=== PATIENT | female | born 1935 | race Caucasian/White ===

== ENCOUNTER 2016-08-10 17:00 | Observation (INO) ==
--- NOTE | 2016-08-10 17:12 | Emergency Department Note ---
Disposition Clinical Impression: Colitis Disposition: Admitted As Inpatient Condition: Fair Referrals: Daryl Presley DO [Primary Care Provider] - Forms: ED Satisfaction Letter Time of Disposition: 19:34 (raji hoskins) GI Bleed HPI - General Chief complaint: ED GI Bleed Stated complaint: gi bleed, hematuria Time Seen by Provider: 08/10/16 17:02 Source: patient Mode of arrival: ambulatory Limitations: no limitations Nursing Notes Reviewed: Yes Vital Signs Reviewed: Yes - History of Present Illness HPI Narrative: 80-year-old female presents versus had bloody stools increasing in intensity over the past 3 days to the point where today she passed blood and clots in the stool states that she has had abdominal cramping but no abdominal pain denies chest pain chest pressure palpitations cough hemoptysis sputum production she had a single episode portably last night according to family patient denies numbness tingling weakness recently gaining weight loss denies any recent antibiotics and also denies any additional complaints with complete entire review systems Pt Subjective Complaint: gross bloody stools Onset (ago): day(s) (3) Consistency: constant Severity: moderate Improves with: nothing Worsens with: nothing Associated symptoms: Reports: abdominal pain. Denies: vomiting, epistaxis, fever, headaches, loss of appetite, malaise, easy bruising, rash, shortness of breath, syncope/near-syncope Treatments Prior to Arrival: none - Related Data Home Medications Medication Instructions Recorded Confirmed Acetaminophen [Tylenol] 500 mg PO DAILY 08/14/15 08/03/16 Atorvastatin [Lipitor] 10 mg PO HS 08/14/15 08/03/16 Cholecalciferol (Vitamin D3) 1,000 unit PO DAILY 08/14/15 08/03/16 [Vitamin D] FLUoxetine HCl [PROzac] 10 mg PO DAILY 08/14/15 08/03/16 FLUoxetine HCl [PROzac] 10 mg PO DAILY 08/14/15 08/03/16 Garlic 500 mg PO DAILY 08/14/15 08/03/16 Lisinopril 30 mg PO DAILY 08/14/15 08/03/16 Baxley-3/Dha/Epa/Fish Oil [Baxley 3 1 each PO DAILY 08/14/15 08/03/16 500 Softgel] Allergies Allergy/AdvReac Type Severity Reaction Status Date / Time Sulfa (Sulfonamide Allergy Hives Verified 08/03/16 16:56 Antibiotics) All systems ED: reviewed and negative except as stated. Constitutional: Denies: fever, chills, weakness Eyes: Denies: eye discharge ENT ED: Denies: ear pain Cardiovascular: Denies: chest pain Respiratory: Denies: cough, dyspnea Gastrointestinal: Reports: abdominal pain, hematochezia Genitourinary: Reports: urgency, dysuria, frequency, hematuria Musculoskeletal: Denies: back pain, neck pain Integumentary: Denies: abrasion Neurological: Denies: weakness Psychiatric: Denies: depression Endocrine: Denies: heat or cold intolerance Hematological/Lymphatic: Denies: easy bleeding Allergic/Immunologic: Denies: facial swelling Past Medical History - Past Medical History Attestation: Yes The following information was validated with the patient. 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 - Social History Smoking Status: Current every day smoker Smokeless Tobacco Status: No Alcohol use: Reports: occasionally Drug use: Reports: none Physical Exam - General Limitations: no limitations General appearance: alert, in no apparent distress, anxious - Head Head exam: atraumatic, normocephalic, normal inspection - Eye Eye exam: Present: normal appearance, PERRL, EOMI - ENT ENT exam: normal exam, normal oropharynx, mucous membranes moist, normal external ear exam - Neck Neck exam: Present: normal inspection, full ROM, trachea midline - Chest Chest inspection: Present: normal inspection, symmetric chest wall rise - Respiratory Respiratory exam: Present: normal lung sounds bilaterally - Cardiovascular Cardiovascular exam: Present: regular rate, normal rhythm, normal heart sounds - Abdominal Exam Abdominal exam: Present: soft, Non-Tender, normal bowel sounds - Extremities Exam Extremities exam: Present: normal inspection, full ROM, normal capillary refill. Absent: tenderness, joint swelling - Expanded Lower Extremity Exam Neurovascular/Tendon exam: Present: normal capillary refill, normal fine/light touch Gait: observed and normal - Back Exam Back exam: Present: normal inspection, full ROM. Absent: muscle spasm - Neurological Exam Neurological exam: Present: alert, oriented X3, CN II-XII intact - Psychiatric Psychiatric exam: Present: anxious - Skin Skin exam: Present: warm, dry, intact, normal color Course Course Narrative: Patient was immediately seen and examined IV was established at this time patient is asymptomatic CT scan and labs were done which showed that there was acute colitis mild to severe patient did [facility] family talked to the patient she is now agreeable staying patient retransferred to [facility] for IV antibiotics which should resolve the bleeding within the stools and stabilized the hemoglobin we will do serial H&H's through the night admitted for observation service of Dr. Zaidi Vital Signs Temperature 97.4 F L 08/10/16 17:01 Pulse Rate 79 08/10/16 17:01 Respiratory Rate 18 08/10/16 17:01 Blood Pressure 188/76 08/10/16 17:01 O2 Sat by Pulse Oximetry 97 08/10/16 17:01 Temperature 97.4 F L 08/10/16 17:01 Pulse Rate 72 08/10/16 19:36 Respiratory Rate 18 08/10/16 19:36 Blood Pressure 185/82 08/10/16 19:36 O2 Sat by Pulse Oximetry 95 08/10/16 19:36 Oxygen Delivery Oxygen Delivery Room Air GI Bleed - MDM Narrative Medical decision making narrative: uti colitis - Differential Diagnosis Likely: Upper gastrointestinal hemorrhage, Lower gastrointestinal hemorrhage, hematochezia, melena, coagulopathy - Medical Records Medical records reviewed: Yes I reviewed the patient's medical records. - Lab Data Lab results reviewed: Yes I reviewed the patient's lab results. Result diagrams: 08/10/16 17:36 08/10/16 17:36 Lab Results 08/10/16 08/10/16 08/10/16 Range/Units 17:36 17:36 17:36 WBC 11.5 H (4.3-11.1) K/mcL RBC 3.14 L (3.82-4.97) M/mcL Hgb 8.7 L (11.5-15.4) g/dL Hct 26.3 L (35.3-44.9) % MCV 83.8 (83.0-100.0) fL MCH 27.7 L (28.0-33.3) pg MCHC 33.1 (31.6-35.5) g/dL RDW 16.1 H (11.5-14.5) % Plt Count 245 (140-400) K/mcL MPV 9.3 L (9.4-12.4) fL Immature Gran % 0.5 (0-4) % Seg Neutrophils % 77.6 % Lymphocytes % 11.9 % Monocytes % 9.1 % Eosinophils % 0.6 % Basophils % 0.3 % Neutrophils # 8.9 (1.6-8.9) K/mcL Lymphocytes # 1.4 (0.6-4.6) K/mcL Monocytes # 1.1 (0.0-1.3) K/mcL Eosinophils # 0.1 (0.0-0.6) K/mcL Basophils # 0.0 (0.0-0.2) K/mcL PT 11.7 (9.4-12.1) Seconds INR 1.1 APTT 27.3 (26.0-36.0) Seconds Sodium 141 (136-145) mEq/L Potassium 3.3 L (3.5-4.5) mEq/L Chloride 107 (98-109) mEq/L Carbon Dioxide 24 (19-29) mEq/L BUN 19 (7-20) mg/dL Creatinine 0.94 (0.57-1.11) mg/dL Est GFR ( Amer) > 60 (> 60) Est GFR (Non-Af Amer) 57 L (> 60) BUN/Creatinine Ratio 20 (6-26) Glucose 129 H (70-99) mg/dL Calculated Osmolality 296 (280-300) Calcium 9.1 (8.6-10.8) mg/dL Total Bilirubin 0.3 (0.2-1.2) mg/dL AST 19 (5-34) Units/L ALT 14 (0-55) Units/L Alkaline Phosphatase 73 (38-126) Units/L Troponin I (0-0.03) ng/mL Serum Total Protein 6.1 (6.0-8.3) g/dL Albumin 3.2 L (3.5-5.0) g/dL Globulin 2.9 (2.4-3.5) g/dL Albumin/Globulin Ratio 1.1 (1.1-2.2) 08/10/16 Range/Units 17:36 WBC (4.3-11.1) K/mcL RBC (3.82-4.97) M/mcL Hgb (11.5-15.4) g/dL Hct (35.3-44.9) % MCV (83.0-100.0) fL MCH (28.0-33.3) pg MCHC (31.6-35.5) g/dL RDW (11.5-14.5) % Plt Count (140-400) K/mcL MPV (9.4-12.4) fL Immature Gran % (0-4) % Seg Neutrophils % % Lymphocytes % % Monocytes % % Eosinophils % % Basophils % % Neutrophils # (1.6-8.9) K/mcL Lymphocytes # (0.6-4.6) K/mcL Monocytes # (0.0-1.3) K/mcL Eosinophils # (0.0-0.6) K/mcL Basophils # (0.0-0.2) K/mcL PT (9.4-12.1) Seconds INR APTT (26.0-36.0) Seconds Sodium (136-145) mEq/L Potassium (3.5-4.5) mEq/L Chloride (98-109) mEq/L Carbon Dioxide (19-29) mEq/L BUN (7-20) mg/dL Creatinine (0.57-1.11) mg/dL Est GFR ( Amer) (> 60) Est GFR (Non-Af Amer) (> 60) BUN/Creatinine Ratio (6-26) Glucose (70-99) mg/dL Calculated Osmolality (280-300) Calcium (8.6-10.8) mg/dL Total Bilirubin (0.2-1.2) mg/dL AST (5-34) Units/L ALT (0-55) Units/L Alkaline Phosphatase (38-126) Units/L Troponin I 0.02 (0-0.03) ng/mL Serum Total Protein (6.0-8.3) g/dL Albumin (3.5-5.0) g/dL Globulin (2.4-3.5) g/dL Albumin/Globulin Ratio (1.1-2.2) - Radiology Data Radiology results reviewed: Yes I reviewed the patient's radiology results. ITS Impressions Abdomen/Pelvis CT 08/10/16 17:03 IMPRESSION: 1. Findings compatible with moderate to severe colitis of the left colon. D/ / 08/10/2016 18:24:13 Thanh Garcia MD / abhinav Interpreting Provider: Thanh Garcia MD - EKG Data EKG attestation: Yes I reviewed and interpreted this EKG. EKG results narrative: Sinus rhythm rate 76 WI 208 QRS 164 QT 412 access -60 Critical Care Time Critical Care Time: No
[2016-08-10 17:44] LABS: Basophils % 0.3 %; Eosinophils # 0.1 K/mcL (0.0-0.6); Eosinophils % 0.6 %; Hematocrit 26.3 % (35.3-44.9); Hemoglobin 8.7 g/dL (11.5-15.4); Immature Granulocytes % 0.5 % (0-4); Lymphocytes # 1.4 K/mcL (0.6-4.6); Lymphocytes % 11.9 %; Mean Corpuscular HGB Conc 33.1 g/dL (31.6-35.5); Mean Corpuscular Hemoglobin 27.7 pg (28.0-33.3); Mean Corpuscular Volume 83.8 fL (83.0-100.0); Mean Platelet Volume 9.3 fL (9.4-12.4); Monocytes % 9.1 %; Neutrophils # 8.9 K/mcL (1.6-8.9); Platelet Count 245 K/mcL (140-400); Red Blood Count 3.14 M/mcL (3.82-4.97); Red Cell Distribution Width 16.1 % (11.5-14.5); Segmented Neutrophils % 77.6 %
[2016-08-10 17:50] LABS: Monocytes # 1.1 K/mcL (0.0-1.3)
[2016-08-10 17:52] LABS: INR 1.1; Prothrombin Time 11.7 Seconds (9.4-12.1)
[2016-08-10 17:55] LABS: Activated Partial Thrombo Time 27.3 Seconds (26.0-36.0)
[2016-08-10 18:04] LABS: Alanine Aminotransferase 14 Units/L (0-55); Albumin 3.2 g/dL (3.5-5.0); Albumin/Globulin Ratio 1.1 (1.1-2.2); Alkaline Phosphatase 73 Units/L (38-126); Aspartate Amino Transferase 19 Units/L (5-34); BUN/Creatinine Ratio 20 (6-26); Bilirubin,Total 0.3 mg/dL (0.2-1.2); Blood Urea Nitrogen 19 mg/dL (7-20); Calcium 9.1 mg/dL (8.6-10.8); Carbon Dioxide 24 mEq/L (19-29); Chloride 107 mEq/L (98-109); Globulin 2.9 g/dL (2.4-3.5); Glucose 129 mg/dL (70-99); Osmolality,Calculated 296 (280-300); Potassium 3.3 mEq/L (3.5-4.5); Sodium 141 mEq/L (136-145); Total Protein 6.1 g/dL (6.0-8.3); eGFR For African Americans > 60 (> 60); eGFR For Non-African Americans 57 (> 60)
[2016-08-10] MEDS ORDERED: MetroNIDAZOLE 500 MG/100 ML 500 MG/100 ML BAG IVPB STA (19:11)
[2016-08-10] MEDS ORDERED: 0.9 % Sodium Chloride 1,000 ML IVC SCH ×2 (19:15→20:44)
[2016-08-10] MEDS ORDERED: Naloxone 0.4 MG/ML INJ IVP PRN (20:44)
[2016-08-10] MEDS ORDERED: Ondansetron ODT 4 MG TAB.RAPDIS SL PRN (20:44)
[2016-08-10 21:29] LABS: Hematocrit 24.6 % (35.3-44.9); Hemoglobin 8.2 g/dL (11.5-15.4)
[2016-08-10 22:15] LABS: Bilirubin,Urine Negative (Negative); Blood,Urine Negative (Negative); Clarity,Urine Clear (Clear); Color,Urine Yellow (Yellow); Glucose,Urine (UA) Normal (Normal); Ketones,Urine Negative (Negative); Leukocyte Esterase,Urine Negative (Negative); Nitrite,Urine Negative (Negative); Protein,Urine 100 mg/dL (Neg-Trace); Specific Gravity,Urine 1.025 (1.010-1.025); Urobilinogen,Urine Normal (Normal)
[2016-08-10 22:26] LABS: Squamous Epithelial Cell,Urine Few per lpf (None-Few)
[2016-08-10] MEDS: Nicotine 21 MG PATCH.TD24 TD SCH (23:54)
[2016-08-11 05:32] LABS: Basophils % 0.2 %; Eosinophils # 0.1 K/mcL (0.0-0.6); Eosinophils % 0.9 %; Hematocrit 24.4 % (35.3-44.9); Immature Granulocytes % 0.3 % (0-4); Lymphocytes # 1.2 K/mcL (0.6-4.6); Lymphocytes % 9.8 %; Mean Corpuscular HGB Conc 32.8 g/dL (31.6-35.5); Mean Corpuscular Hemoglobin 27.7 pg (28.0-33.3); Mean Corpuscular Volume 84.4 fL (83.0-100.0); Monocytes # 1.1 K/mcL (0.0-1.3); Monocytes % 8.8 %; Neutrophils # 9.6 K/mcL (1.6-8.9); Platelet Count 224 K/mcL (140-400); Red Blood Count 2.89 M/mcL (3.82-4.97); Red Cell Distribution Width 16.1 % (11.5-14.5)
[2016-08-11 05:42] LABS: INR 1.1; Prothrombin Time 11.7 Seconds (9.4-12.1)
[2016-08-11 05:45] LABS: Activated Partial Thrombo Time 26.7 Seconds (26.0-36.0)
[2016-08-11 05:54] LABS: BUN/Creatinine Ratio 18 (6-26); Blood Urea Nitrogen 15 mg/dL (7-20); Calcium 8.6 mg/dL (8.6-10.8); Carbon Dioxide 22 mEq/L (19-29); Chloride 109 mEq/L (98-109); Glucose 87 mg/dL (70-99); Osmolality,Calculated 294 (280-300); Potassium 3.5 mEq/L (3.5-4.5); Sodium 142 mEq/L (136-145); eGFR For African Americans > 60 (> 60); eGFR For Non-African Americans > 60 (> 60)
[2016-08-11] MEDS: 0.9 % Sodium Chloride 1,000 ML IVC SCH ×3 (05:55→10:45)
[2016-08-11] MEDS ORDERED: Cholecalciferol (D-3) 1,000 UNIT TABLET PO SCH (09:00)
[2016-08-11] MEDS ORDERED: EPA PO SCH (09:00)
[2016-08-11] MEDS ORDERED: OMEGA PO SCH (09:00)
[2016-08-11] MEDS ORDERED: FISH OIL PO SCH (09:00)
[2016-08-11] MEDS ORDERED: FLUoxetine HCl 10 MG CAPSULE PO SCH ×2 (09:00)
[2016-08-11] MEDS ORDERED: (Garlic [Garlic] 500 MG) PO SCH (09:00)
[2016-08-11] MEDS ORDERED: DHA PO SCH (09:00)
[2016-08-11] MEDS: Nicotine 21 MG PATCH.TD24 TD SCH (10:33)
--- NOTE | 2016-08-11 14:28 | Internal Med History&Physical ---
Date of Encounter: 08/11/16 Time of Encounter: 13:25 Assessment and Plan (1) Anemia Current visit: Yes Status: Acute Suspect iron deficiency. Hemoglobin was 11.1 on 08/14/2015 with MCV of 86.1. Will start her on ferrous sulfate and vitamin C. Qualifiers: Anemia type: unspecified type Qualified Code(s): D64.9 - Anemia, unspecified (2) Hypokalemia Current visit: Yes Status: Resolved Potassium now normal at 3.5 on recheck. Will not workup or treat further. (3) Azotemia Current visit: Yes Status: Acute Creatinine has improved to 0.85 today. Will not workup or treatment further. Suspect CKD stage 2 from review of previous labs. (4) Colitis Current visit: Yes Status: Acute Etiology not obvious. We will not start antibiotics at this time. (5) Neutrophilic leukocytosis Current visit: Yes Status: Acute Suspect due to colitis. Repeat WBC shows minimal increase today to 12.0 K with 80% segs. Internal Medicine - H&P: HPI Chief complaint: Syncope and hematochezia Admitted From: Home Plans for Post Hospital Care: Home History of present illness: Ms. Salinas is a 80 year old female who came to emergency room at the insistence of her granddaughter after she had a BM with visible bright red blood approximately 4 PM the day of admission. There was no abdominal pain or other symptoms associated. She had had a syncopal episode the previous night after she arose from a chair and started walking to the bathroom. She does not remember well the circumstances surrounding the syncope. She denies injury but simply remembers regaining consciousness on the hallway floor. She had an episode of vomiting after the syncope but felt well otherwise. She had no further vomiting or syncopal or near syncopal episodes afterward. She was evaluated in emergency room and found to have anemia, hypokalemia, azotemia, and mild leukocytosis with borderline left shift. Abdominal/pelvic CT showed moderate to severe colitis of the left colon. She was admitted to [facility] for ongoing care needs. She states she feels back to her baseline now and wishes to be discharged home. She denies previous episodes of hematochezia or melena. She claims she had colonoscopy approximately 2012 which was unremarkable. She has had cholecystectomy. She denies disorders of her liver or exocrine pancreas. She has not taken antibiotics or any other new medications or OTC supplements in the past month. She has not consumed any unusual food or beverages and has not traveled outside her usual travel area. Past Med Surg Social Fam HX - Past Medical History Medical history: hypertension Psychiatric history: depression - Past Surgical History Surgical History: non-contributory - Social History Smoking Status: Current every day smoker Smokeless Tobacco Status: No Alcohol use: occasionally Drug use: none - Family History Daughter History Unknown: Yes Adopted: [place]: TERESA BETHEA Age: 56 Family Member Ethnicity: Non- Twin of Family Member: Yes, Identical Living Status: Still Living Hx Family Cardiac Disorders: No Hx Family Respiratory Disorders: No Hx Family Cancer: No Hx Family GI Disorders: No Hx Family Genitourinary Disorders: No Hx Family Endocrine Disorder: No Hx Family Musculoskeletal Disorders: Yes (Arthritis) Hx Family Neuromuscular Disorders: No Hx Family Neurologic Disorders: No Hx Family HEENT Disorders: No Hx Family Autoimmune Disorders: No Hx Family Reproductive Disorders: Yes (histerectomy) Hx Family Psychosocial Disorders: No Hx Family Medical Disorders: No Internal Medicine - H&P: Meds Acetaminophen [Tylenol] 500 mg PO DAILY 08/14/15 [History] Atorvastatin [Lipitor] 10 mg PO HS 08/14/15 [History] Cholecalciferol (Vitamin D3) [Vitamin D] 1,000 unit PO DAILY 08/14/15 [History] FLUoxetine HCl [PROzac] 10 mg PO DAILY 08/14/15 [History] FLUoxetine HCl [PROzac] 10 mg PO DAILY 08/14/15 [History] Garlic 500 mg PO DAILY 08/14/15 [History] Lisinopril 30 mg PO DAILY 08/14/15 [History] Hull-3/Dha/Epa/Fish Oil [[place]ull 3 500 Softgel] 1 each PO DAILY 08/14/15 [History ] Allergies Sulfa (Sulfonamide Antibiotics) Allergy (Verified 08/03/16 16:56) Hives All Systems PM: A 10-system review of systems was performed and is negative for pertinent findings except as documented above in the HPI. Review of systems: Gen.: She states her weight has been stable past few months Cardiovascular: She has history of hypertension but denies KS heart failure angina DVT or pulmonary embolus Respiratory: She has smoked since age 16 up to 2 packs per day. She denies chronic lung disease. She has not had PFTs. She denies testing for DYLON GI: As per history of present illness : She has history of kidney stones in the past. She has had UTIs in the past. She denies other kidney or bladder disorders. She denies diagnosis of chronic kidney disease Neurologic: She denies large distribution strokes or seizures. Endocrine: She has hyperlipidemia but denies diabetes or thyroid disease Hematology/oncology: She denies internal malignancies or past history of anemia or other blood disorders Psychiatric: She has anxiety and depression but denies other mental health issues Musk skeletal: She has DJD and osteoporosis but denies other bone joint or muscle disorders. - Constitutional Vitals: Temp Pulse Resp BP Pulse Ox 98.5 F 73 16 193/70 96 08/11/16 11:21 08/11/16 11:21 08/11/16 11:21 08/11/16 11:21 08/11/16 11:21 Exam: Gen.: She is a well-developed well-nourished female who appears in no acute distress at present time HEENT: Head is atraumatic and normocephalic. Eyes: EOMI. There is no scleral icterus. Mouth: Mucosa is moist. Neck: Supple and nontender. There is no thyromegaly or adenopathy noted. Heart: Regular without murmurs gallops or ectopics. Lungs: No wheezes or crackles are heard. Abdomen: Bowel sounds are present. The abdomen is soft and nontender to palpation. No masses or guarding are noted. Extremities: There is no cyanosis edema or clubbing noted. Dorsalis pedis and posttibial pulses are 2 over 2 bilaterally. She has mild EGD changes her hands. Neurologic: Mental status: She is talkative and a good historian. Nerves: Smile is symmetric. Forehead wrinkles bilaterally. Tongue protrudes midline. EOMI. Motor: There is no pronator drift. Cerebellar: Finger to nose is intact bilaterally. Skin: Warm and dry Internal Med - H&P Results - Labs CBC & Chem 7: 08/11/16 04:48 08/11/16 04:48 Labs: Short CBC 08/10/16 08/11/16 Range/Units 21:18 04:48 WBC 12.0 H (4.3-11.1) K/mcL Hgb 8.2 L 8.0 L (11.5-15.4) g/dL Hct 24.6 L 24.4 L (35.3-44.9) % Plt Count 224 (140-400) K/mcL Neutrophils # 9.6 H (1.6-8.9) K/mcL BMP 08/11/16 04:48 Sodium 142 Potassium 3.5 Chloride 109 Carbon Dioxide 22 BUN 15 Creatinine 0.85 Glucose 87 Calcium 8.6 Urine 08/10/16 Range/Units 22:05 Urine Color Yellow (Yellow) Urine Clarity Clear (Clear) Urine pH 5.0 (5.0-8.0) pH Units Ur Specific [place] 1.025 (1.010-1.025) Urine Protein 100 H (Neg-Trace) mg/dL Urine Glucose (UA) Normal (Normal) mg/dL
--- NOTE | 2016-08-11 14:42 | Discharge Summary ---
Date of Encounter: 08/11/16 Time of Encounter: 13:25 - Discharge Diagnosis (1) Anemia Priority: Primary Status: Acute Qualifiers: Anemia type: unspecified type Qualified Code(s): D64.9 - Anemia, unspecified (2) Hypokalemia Priority: Secondary Status: Resolved (3) Azotemia Priority: Secondary Status: Acute (4) Colitis Priority: Secondary Status: Acute (5) Neutrophilic leukocytosis Priority: Secondary Status: Acute - Discharge Medications Prescriptions: Ferrous Sulfate [Iron] 325 mg PO DAILY #30 tablet Home Medications: Acetaminophen [Tylenol] 500 mg PO DAILY 08/14/15 [History] Atorvastatin [Lipitor] 10 mg PO HS 08/14/15 [History] Cholecalciferol (Vitamin D3) [Vitamin D3] 1,000 unit PO DAILY 08/14/15 [History] FLUoxetine HCl [Prozac] 10 mg PO DAILY 08/14/15 [History] Lisinopril 30 mg PO DAILY 08/14/15 [History] Waldo-3/Dha/Epa/Fish Oil [Waldo 3 500 Softgel] 1 each PO DAILY 08/14/15 [History ] Ferrous Sulfate [Iron] 325 mg PO DAILY #30 tablet 08/11/16 [Rx] Allergies/Adverse Reactions: Allergies Sulfa (Sulfonamide Antibiotics) Allergy (Verified 08/03/16 16:56) Hives Date of admission: 08/10/16 19:54 Primary care physician: Daryl Presley DO - Patient Status Disposition: Home, Self-Care Condition: Fair Functional capacity at discharge: independent ambulation Overall status at discharge: patient is progressing back to baseline - Discharge Instructions Follow Up With: Daryl Presley DO [Primary Care Provider] - 1 week - Diet and Activity Activity: resume usual activities as tolerated Diet: advance to your usual diet Hospital course: Ms. Salinas is a 80 year old female who came to emergency room at the insistence of her granddaughter after she had a BM with visible bright red blood approximately 4 PM the day of admission. There was no abdominal pain or other symptoms associated. She had had a syncopal episode the previous night after she arose from a chair and started walking to the bathroom. She does not remember well the circumstances surrounding the syncope. She denies injury but simply remembers regaining consciousness on the hallway floor. She had an episode of vomiting after the syncope but felt well otherwise. She had no further vomiting or syncopal or near syncopal episodes afterward. She was evaluated in emergency room and found to have anemia, hypokalemia, azotemia, and mild leukocytosis with borderline left shift. Abdominal/pelvic CT showed moderate to severe colitis of the left colon. She was admitted to [facility] for ongoing care needs. The initial orders were written by the emergency room physician. I saw her on August 11 and performed a history physical and discharge. She had no more syncopal or near syncopal episodes. She had no more episodes of hematochezia. Hemoglobin dropped to 8.0 with IV fluids administration. She had no abdominal tenderness and tolerated food and fluid intake without difficulty. The etiology for her colitis was not obvious. When I saw her she stated she wished to be discharged home. I told her she should follow with her PCP Dr. Presley within 1 week. He can recheck CBC and chemistries to monitor abnormalities noted during hospitalization. Room air oximetry and orthostatic vital signs will be checked prior to discharge. I encouraged her to discontinue smoking. I also instructed her to discontinue OTC aspirin, garlic, and probiotics. She will be started empirically on ferrous sulfate with vitamin C for presumed iron deficiency anemia. - Time Spent with Patient Total time spent providing and/or coordinating discharge services: - Constitutional Vitals: Temp Pulse Resp BP Pulse Ox 98.5 F 73 16 193/70 96 08/11/16 11:21 08/11/16 11:21 08/11/16 11:21 08/11/16 11:21 08/11/16 11:21
[2016-08-11 15:06] VITALS: BP 192/67
--- NOTE | 2016-08-12 17:43 | Electrocardiograph Report ---
[address] [address] Test Date: 2016-08-10 Pat Name: Lelia Salinas Department: [id number] Room: [facility] Gender: F Thermodynamicist: [id number] : 1935 Requested By: Omar Zaidi Order Number: [id number] Reading MD: Ally Espinoza Measurements Intervals [place] Rate: 76 P: 63 WI: 208 QRS: -60 QRSD: 164 T: 27 QT: 412 QTc: 442 Interpretive Statements SINUS RHYTHM RIGHT BUNDLE BRANCH BLOCK LEFT ANTERIOR FASCICULAR BLOCK MINIMAL VOLTAGE CRITERIA FOR LVH, CONSIDER NORMAL VARIANT Electronically Signed On 08-12-2016 17:41:40 EDT by Ally Espinoza
== END 2016-08-11 16:00 | disposition home or self-care (01) ==
LOC: EMEROOPIK 17:00 → INPPIK 17:00
PROVIDERS: ADMIT Internal Medicine; ATTEND Internal Medicine